=== PATIENT | male | born 2000 | race Caucasian/White ===

== ENCOUNTER 2021-06-30 06:44 | Emergency (ER) | payer OTHER ==
[~2021-06-30] VITALS: Ht 185.5 cm; Wt 72.6 kg
[2021-06-30] MEDS ORDERED: FAMOTIDINE 20 MG (PEPCID) TABLET PO STA (07:05)
[2021-06-30] MEDS ORDERED: ANTACID SUSP 30 ML UDC (MYLANTA) PO ONE (07:15)
[2021-06-30] MEDS ORDERED: LIDOCAINE 2% VISCOUS 15 ML UDC PO ONE (07:15)
[2021-06-30] MEDS ORDERED: ONDANSETRON 4 MG (ZOFRAN) ORAL DISSOLVE TAB PO ONE (07:15)
--- NOTE | 2021-06-30 07:23 | ED Abdominal Pain ---
General Chief Complaint: Abdominal/GI Problems Stated Complaint: ABD PAIN / BLOOD IN STOOL Nursing Triage Note: MID/UPPER ABDOMINAL PAIN SINCE 0500 History of Present Illness Date Seen by Provider: Jun 30, 2021 Time Seen by Provider: 07:02 Initial Comments Patient to the ER by private conveyance from home with chief complaint of bloody soft stool, non watery x1 today. He said it was fairly bright red no clots. No pain in the rectum. Some epigastric down to the umbilicus pain. He has not take anything for it. He has a history of suspected ulcers or acid reflux and went to the ER few weeks ago and was prescribed some medicines which helped to feel better. He is not taking anything presently. He has had no endoscopy or follow-up. He does not have a known history of irritable bowel inflammatory bowel but his mother has what sounds like irritable bowel disease. He does not think he has hemorrhoids. No history of fissures. He has concerns that he uses a pesticide fumigant MITC-Fume that may be causing his symptoms or something else. He states that he has been wearing proper PPE when handling this materi al. This includes gloves apron etc. He denies having inhaled any of it no chest pain shortness of air weakness or numbness. His symptoms started this morning while at home. Allergies and Home Medications Allergies Coded Allergies: No Known Drug Allergies (Unverified , 06/30/21) Patient Home Medication List Home Medication List Reviewed: Yes No Active Prescriptions or Reported Meds Review of Systems Review of Systems Constitutional: No chills, No diaphoresis EENTM: No Blurred Vision, No Double Vision Respiratory: Denies Cough, Denies Shortness of Air Cardiovascular: Denies Chest Pain, Denies Lightheadedness Gastrointestinal: See HPI, Abdominal Pain; Denies Constipated, Denies Diarrhea; Nausea; Denies Vomiting Genitourinary: Denies Burning, Denies Discharge Musculoskeletal: No back pain, No joint pain All Other Systems Reviewed Negative Unless Noted: Yes Past Imuakjn-Pxptwq-Neufxr Hx Patient Social History Tobacco Use?: No Substance use?: No Alcohol Use?: No Pt feels they are or have been: No Past Medical History Surgery/Hospitalization HX: GASTRIC [facility]LCER Physical Exam Vital Signs Vital Signs - First Documented 06/30/21 06:50 Temp 36.2 Pulse 83 Resp 18 B/P (MAP) 141/77 (98) Pulse Ox 100 O2 Delivery Room Air Capillary Refill : Less Than 3 Seconds Height/Weight/BMI Height: '" Weight: lbs. oz. kg; 21.00 BMI Method: General Appearance: WD/WN, no apparent distress HEENT: PERRL/EOMI, pharynx normal Neck: full range of motion, supple, normal inspection Respiratory: lungs clear, normal breath sounds, no respiratory distress, no accessory muscle use Cardiovascular: normal peripheral pulses, regular rate, rhythm Peripheral Pulses: 2+ Radial Pulses (R), 2+ Radial Pulses (L) Gastrointestinal: normal bowel sounds, soft, tenderness (Epigastric, umbilicus tenderness without psoas sign, mesenteric sign, Rovsing sign, McBurney's point tenderness, Frausto sign) Rectal: deferred (Patient declined) Extremities: normal inspection, normal capillary refill Neurologic/Psychiatric: alert, normal mood/affect, oriented x 3 Skin: normal color, warm/dry Progress/Results/Core Measures Results/Orders My Orders Orders - SERENE PHIPPS Lidocaine 2% Viscous 15 Ml (Xylocaine Vi (06/30/21 07:15) Famotidine Tablet (Pepcid Tablet) (06/30/21 07:05) Antacid Suspension (Mylanta Suspension (06/30/21 07:15) Ondansetron Oral Dissolve Tab (Zofran (06/30/21 07:15) Medications Given in ED Current Medications Medications Dose Ordered Sig/Malissa Route Start Time Stop Time Status Last Admin Dose Admin Al Hydrox/Mg Hydrox/Simethicone 30 ml ONCE ONCE PO 06/30/21 07:15 06/30/21 07:16 DC 06/30/21 07:17 30 ML Lidocaine HCl 15 ml ONCE ONCE PO 06/30/21 07:15 06/30/21 07:16 DC 06/30/21 07:17 15 ML Ondansetron HCl 4 mg ONCE ONCE PO 06/30/21 07:15 06/30/21 07:16 DC 06/30/21 07:17 4 MG Vital Signs/I&O 06/30/21 06:50 Temp 36.2 Pulse 83 Resp 18 B/P (MAP) 141/77 (98) Pulse Ox 100 O2 Delivery Room Air Blood Pressure Mean: 98 Progress Progress Note #1: Time: :22 Progress Note We reviewed the MSDS for MITC-Fume. It is an acidic oxidizer causing jose on direct contact. It is very unlikely the patient would have ingested this and his only symptom be some mild pain and a little bloody stool. More likely he has hemorrhoids, irritable bowel, inflammatory bowel, PUD etc. With his complaint of bright red blood per rectum it is less likely an upper GI bleed. He has a nonsurgical abdomen and aseptic vital signs. We did offer to do some blood work. The patient states he will have to talk to his mother first. We did offer him some antacids, Pepcid and nausea medicine as well as a referral to Dr. Alvarez, general surgery for appropriate work-up of his GI distress. We also offered to do a rectal exam which the patient declined at this time. Progress Note #2: Time: 07:40 Progress Note Patient declined to do the labs today and just wants to follow-up with general surgeon. This is reasonable. His vital signs are still aseptic. His abdomen is still nonsurgical. He is not having any relief of the pain in his abdomen from the GI cocktail so we will try some Levsin prescription and follow-up. Departure Impression Primary Impression: Bright red blood per rectum Additional Impression: Abdominal pain Qualified Codes: R10.84 - Generalized abdominal pain Disposition: 01 HOME, SELF-CARE Condition: Stable Departure-Patient Inst. Decision time for Depature: 07:42 Referrals: NO,LOCAL PHYSICIAN (PCP/Family) Primary Care Physician Patient Instructions: Bloody Stools, Adult (DC) Add. Discharge Instructions: I recommend you continue antacids to reduce the acid load on your bowels for the next week or 2. paralegal supervisor the prescription for hyoscyamine and take 1 pill every 6 hours as necessary for pain, spasms or diarrhea. Call Dr. Alvarez's office and request follow-up for diagnosis. Differential includes things like irritable bowel inflammatory bowel, polyps, diverticula, colitis etc. Tylenol 1000 mg every 8 hours as necessary for pain. Return to the ER for intractable pain, intractable vomiting, dehydration, fever or other worrisome symptoms. All discharge instructions reviewed with patient and/or family. Voiced understanding. Scripts Hyoscyamine Sulfate (Hyoscyamine Sulfate) 0.125 Mg Tab.rapdis 0.125 MG PO Q6H PRN for PAIN-BREAKTHROUGH, #20 TAB 0 Refills Prov: MOISE,SERENE J 06/30/21 Work/School Note: Work Release Form Date Seen in the Emergency Department: Jun 30, 2021 Return to Work: Jul 01, 2021 Restrictions: No Restrictions SERENE PHIPPS Jun 30, 2021 07:23
[2021-06-30] MEDS ORDERED: HYOS-6 PO (07:45)
[2021-06-30 07:53] VITALS: BP 119/73
== END 2021-06-30 07:53 | disposition home or self-care (01) ==
LOC: ER 06:47
DX: K62.5 Hemorrhage of anus and rectum (principal); R10.13 Epigastric pain